=== PATIENT | male | born 1985 ===

== ENCOUNTER 2018-11-04 01:24 | Emergency (ER) | payer SELFPAY ==
[2018-11-04 02:24] VITALS: RESP 18
[2018-11-04] MEDS ORDERED: Sodium Chloride 0.9% 1,000 ML IV STA (02:29)
[2018-11-04] MEDS ORDERED: Iohexol 240 (50 ml) PO ONE (02:37)
[2018-11-04] MEDS ORDERED: Iohexol 240 (50 ml) ONE (02:45)
--- NOTE | 2018-11-04 02:50 | ED PDOC ---
HPI: Abdomen Time Seen by Provider: 11/04/18 01:56 Chief Complaint (Nursing): Abdominal Pain Chief Complaint (Provider): Abdominal Pain History Per: Patient History/Exam Limitations: no limitations Onset/Duration Of Symptoms: Hrs (x4) Location Of Pain/Discomfort: Other (Upper abdomen) Associated Symptoms: Nausea, Vomiting. denies: Fever, Diarrhea Additional Complaint(s): 33 years old male presents to ER for an evaluation of upper abdominal pain associated with nausea and vomiting onset 11 pm. Patient reports he was awoke by abdominal pain with 4 episodes of non bloody, non bilious vomiting. He denies any diarrhea, fever, shortness of breath or chest pain. PMD: None provided Past Medical History Reviewed: Historical Data, Nursing Documentation, Vital Signs Vital Signs: Last Vital Signs Temp 98.4 F 11/04/18 02:22 Pulse 92 H 11/04/18 02:22 Resp 18 11/04/18 02:22 BP 151/99 H 11/04/18 02:22 Pulse Ox 98 11/04/18 02:22 - Medical History PMH: Gastritis Denies: HIV, Chronic Kidney Disease - Surgical History Surgical History: No Surg Hx - Family History Family History: States: Unknown Family Hx - Social History Current smoker - smoking cessation education provided: No Alcohol: None Drugs: Denies - Home Medications Home Medications: Ambulatory Orders Medication Instructions Recorded Famotidine [Pepcid] 20 mg PO Q12 #14 tab 11/04/18 Ondansetron ODT [Zofran ODT] 4 mg PO Q6 PRN #8 odt 11/04/18 - Allergies Allergies/Adverse Reactions: Allergies Allergy/AdvReac Type Severity Reaction Status Date / Time No Known Allergies Allergy Verified 01/10/16 09:48 Review of Systems ROS Statement: Except As Marked, All Systems Reviewed And Found Negative Constitutional: Negative for: Fever Cardiovascular: Negative for: Chest Pain Respiratory: Negative for: Shortness of Breath Gastrointestinal: Positive for: Nausea, Vomiting, Abdominal Pain. Negative for: Diarrhea Physical Exam - Reviewed Nursing Documentation Reviewed: Yes Vital Signs Reviewed: Yes - Physical Exam Appears: Positive for: Well, No Acute Distress Head Exam: Positive for: ATRAUMATIC, NORMOCEPHALIC Skin: Positive for: Normal Color, Warm, Dry Neck: Positive for: Normal, Painless ROM, Supple Cardiovascular/Chest: Positive for: Regular Rate, Rhythm. Negative for: Murmur Respiratory: Positive for: Normal Breath Sounds. Negative for: Wheezing Gastrointestinal/Abdominal: Positive for: Tenderness (mild to RLQ) Back: Positive for: Normal Inspection. Negative for: L CVA Tenderness, R CVA Tenderness Extremity: Positive for: Normal ROM. Negative for: Pedal Edema, Swelling Neurologic/Psych: Positive for: Alert, Oriented (x3) - Laboratory Results Result Diagrams: 11/04/18 02:57 11/04/18 02:57 - ECG O2 Sat by Pulse Oximetry: 98 (RA) Pulse Ox Interpretation: Normal Medical Decision Making Medical Decision Making: Time: 227 Initial Impression: 33 years old male presents with vomiting, nausea and abdominal pain Initial Plan: --CT Abdomen/Pelvis --CMP --Lipase --Urine dipstick --CBC --Omnipaque 50 ml PO --Zofran 4 mg IV --Urinalysis 0502 CT Abdomen/Pelvis Findinngs: The liver is of uniform attenuation without mass or defect. There is no intra or extrahepatic biliary ductal dilatation. The spleen is normal. The gallbladder is within normal limits. The pancreas is of normal contour and attenuation characteristics. There is no evidence of adrenal mass. Both kidneys demonstrate prompt and equal nephrograms. The kidneys are normal in size, shape and configuration. There is no evidence of renal or ureteral mass. No renal or ureteral calculi are identified. There is no hydroureter or hydronephrosis. No evidence for appendicitis. There is no bowel wall thickening. No evidence for small or large bowel obstruction. There is no evidence of abdominal ascites or lymphadenopathy. There is no evidence of intrinsic or extrinsic bladder mass. There is no pelvic ascites or lymphadenopathy. Fat containing umbilical hernia without incarceration. Images of the lung bases show no evidence of pleural or parenchymal mass. There are no pleural effusions. The bony structures are free of lytic or blastic lesions. IMPRESSION: No evidence of acute abdominal or pelvic pathology. 0516 --Labs reviewed and significant for mild leukocytosis --Patient reports marked improvement in symptoms and is stable for discharge --Clinical impression: gastritis Scribe Attestation: Documented by Cyndi Noel, acting as a scribe Rodrick Oconnell MD. Provider Scribe Attestation: All medical record entries made by the Scribe were at my direction and personally dictated by me. I have reviewed the chart and agree that the record accurately reflects my personal performance of the history, physical exam, medical decision making, and the department course for this patient. I have also personally directed, reviewed, and agree with the discharge instructions and disposition. Disposition - Clinical Impression Clinical Impression: Gastritis - Patient ED Disposition Is Patient to be Admitted: No - Disposition Disposition: Routine/Home Disposition Time: 05:16 Condition: STABLE Prescriptions: Famotidine [Pepcid] 20 mg PO Q12 #14 tab Ondansetron ODT [Zofran ODT] 4 mg PO Q6 PRN #8 odt PRN Reason: Nausea/Vomiting Instructions: Gastritis Forms: [facility] ([employer])
[2018-11-04 03:20] LABS: BASO % 0.1 % (0.0-2.0); EOS # 0.2 K/uL (0.0-0.7); EOS % 1.3 % (0.0-4.0); HEMOGLOBIN 15.2 g/dL (12.0-18.0); LYMPH # 0.5 K/uL (1.0-4.3); LYMPH % 3.8 % (20.0-40.0); MEAN CELL VOLUME 88.6 fl (80.0-94.0); MEAN CORPUSCULAR HEMOGLOBIN 28.7 pg (27.0-31.0); MEAN CORPUSCULAR HGB CONC 32.4 g/dL (33.0-37.0); MEAN PLATELET VOLUME 9.4 fl (7.2-11.7); MONO # 1.1 K/uL (0.0-0.8); MONO % 7.7 % (0.0-10.0); NEUT # 12.3 K/uL (1.8-7.0); NEUT % 87.1 % (50.0-75.0); PLATELET COUNT 187 K/uL (130-400); RED CELL DISTRIBUTION WIDTH 13.4 % (11.5-14.5); WHITE BLOOD COUNT 14.1 K/uL (4.8-10.8)
[2018-11-04 03:49] LABS: ALB/GLOB RATIO 1.5 (1.0-2.1); ALBUMIN 4.5 g/dL (3.5-5.0); ALT/SGPT 85 U/L (21-72); AST/SGOT 88 U/L (17-59); BLOOD UREA NITROGEN 23 mg/dl (9-20); GFR NON-AFRICAN AMERICAN > 60; LIPASE 62 U/L (23-300)
[2018-11-04] MEDS ORDERED: Sodium Chloride 0.9% 50 ML IV ONE (04:22)
[2018-11-04] MEDS ORDERED: Iohexol 300 100 ML IJ ONE (04:22)
[2018-11-04 04:30] LABS: BANDS 2 % (0-2); LYMPHOCYTE 5 % (20-50); MONOCYTE 8 % (0-10); NEUTROPHIL 84 % (42-75); REACTIVE LYMPHOCYTES 1 % (0-0); TOTAL CELLS COUNTED 100
[2018-11-04 04:32] LABS: ANISOCYTOSIS SLIGHT; PLATELET ESTIMATE NORMAL (NORMAL); STOMATOCYTES SLIGHT
[2018-11-04 04:33] LABS: TEARDROP CELLS SLIGHT
[2018-11-04 05:30] VITALS: BP 138/90; PULSE 82; TEMP 98.1; O2SAT 99
--- NOTE | 2018-11-04 11:24 | CT ---
Date of service: 11/04/2018 PROCEDURE: CT Abdomen and Pelvis with contrast HISTORY: abd pain COMPARISON: CT scan of the abdomen pelvis dated 09/28/2015 TECHNIQUE: Contrast dose: 95 mL Omnipaque 300 Radiation dose: Total exam DLP = 390.74 mGy-cm. This CT exam was performed using one or more of the following dose reduction techniques: Automated exposure control, adjustment of the mA and/or kV according to patient size, and/or use of iterative reconstruction technique. FINDINGS: LOWER THORAX: Unremarkable. LIVER: Unremarkable. No gross lesion or ductal dilatation. GALLBLADDER AND BILE DUCTS: Unremarkable. PANCREAS: Unremarkable. No gross lesion or ductal dilatation. SPLEEN: Unremarkable. ADRENALS: Unremarkable. No mass. KIDNEYS AND URETERS: Unremarkable. No hydronephrosis. No solid mass. VASCULATURE: Unremarkable. No aortic aneurysm. No aortic atherosclerotic calcification or mural plaque present. BOWEL: Small hiatal hernia. No obstruction. No gross mural thickening. APPENDIX: Normal appendix. PERITONEUM: Small right fat containing inguinal hernia. No free fluid. No free air. LYMPH NODES: Unremarkable. No enlarged lymph nodes. BLADDER: Unremarkable. REPRODUCTIVE: Unremarkable. BONES: No acute fracture. OTHER FINDINGS: None. IMPRESSION: No acute abdominal pelvic pathology.
== END 2018-11-04 05:29 | disposition home or self-care (01) ==
LOC: H.ER 01:24
DX: K29.70 Gastritis, unspecified, without bleeding (principal); D72.829 Elevated white blood cell count, unspecified; K42.9 Umbilical hernia without obstruction or gangrene
CPT/HCPCS: 74177; 80053; 83690; 85025; 99283; J2405; J7030; Q9966; Q9967